=== PATIENT | male | born 1975 | race African-American/Black ===

== ENCOUNTER 2016-03-23 19:31 | Inpatient (IN) | payer BC ==
[~2016-03-23] VITALS: Ht 175.3 cm; Wt 117.5 kg
[2016-03-23 21:40] VITALS: BP 144/85
[2016-03-23] MEDS ORDERED: OXYCODONE/APAP 5/325 TABLET. PO PRN (22:15)
[2016-03-23] MEDS ORDERED: ACETAMINOPHEN 325 MG TABLET. PO PRN (22:15)
[2016-03-23] MEDS: IV NORMAL SALINE 1000ML BAG 1,000 ML IV SCH (22:30)
[2016-03-23] MEDS: FENTANYL PF 100 MCG/2 ML VIAL. IV PRN (22:37)
[2016-03-23] MEDS ORDERED: LOSA100T6 PO (22:49)
[2016-03-23] MEDS ORDERED: METF500T4 PO (22:49)
[2016-03-23] MEDS ORDERED: DAPA5TAB PO (22:49)
[2016-03-23] MEDS ORDERED: PANT40TA5 PO (22:49)
[2016-03-23] MEDS ORDERED: AMLO2.5T PO (22:49)
[2016-03-24] VITALS (10 sets, daily range): BP systolic 106–144; BP diastolic 52–84
[2016-03-24] MEDS: FENTANYL PF 100 MCG/2 ML VIAL. IV PRN ×4 (00:45→08:01)
[2016-03-24] MEDS: ONDANSETRON PF 4 MG/2 ML VIAL. IV PRN ×3 (03:39→20:46)
[2016-03-24] MEDS ORDERED: BUPIVAC MPF-EPI 0.5%-1:200000 30 ML VIAL. ONE (07:37)
[2016-03-24] MEDS ORDERED: SURGICEL HEMOSTAT 4X8 EACH. ONE (07:37)
[2016-03-24] MEDS: PANTOPRAZOLE IV PUSH 40 MG VIAL. IVP SCH (08:00)
--- NOTE | 2016-03-24 08:32 | PDOC2 ---
ZACK ROBBINS RELOCATION SPECIALIST 03/24/16 0832: CONSULT Date of Consult Date of Consult DATE: 03/24/16 TIME: 08:18 Reason for Consult Reason for Consult: possible appendicitis Referring Physician Referring Physician: [facility] ER Identification/Chief Complaint Chief Complaint abdominal pain Source Source: Chart review, Patient History of Present Illness Reason for Visit: RLQ pain with radiation to back for 3 days. + nausea, no emesis. Not aggravated by eating or movement. No alleviating factors. Denies any sick contacts. No constipation or diarrhea. No similar pain in past. 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 Drugs: None Lives: Alone Current Medications Current Medications Current Medications Sodium Chloride (Iv Sodium Chloride 0.9% 1000ml Bag) 1,000 ml @ 100 mls/hr Q10H IV Last administered on 03/23/16 22:30; Start 03/23/16 at 22:30 Pantoprazole Sodium (Protonix Vial) 40 mg DAILYAC IVP Last administered on 08:00; Start 03/24/16 at 07:30 Acetaminophen (Tylenol) 650 mg PRN Q6HRS PRN PO MILD PAIN / TEMP; Start at 22:15 Ondansetron HCl (Zofran) 4 mg PRN Q6HRS PRN IV NAUSEA/VOMITING Last administered on 03/24/16 03:39; Start 03/23/16 at 22:15 Fentanyl Citrate (Fentanyl 2ml Vial) 50 mcg PRN Q2HR PRN IV SEVERE PAIN Last administered on 03/24/16 08:01; Start 03/23/16 at 22:15 Oxycodone/ Acetaminophen (Percocet 5/325) 1 tab PRN Q6HRS PRN PO SEVERE PAIN; Start 03/23/16 at 22:15 Cellulose 1 each STK-MED ONCE .ROUTE ; Start 03/24/16 at 07:37; Stop 03/24/16 at 07:38; Status DC Bupivacaine HCl/ Epinephrine Bitart (Sensorcain-Mpf Epi 0.5%-1:314415) 30 ml STK -MED ONCE .ROUTE ; Start 03/24/16 at 07:37; Stop 03/24/16 at 07:38; Status DC Active Scripts Active Reported Farxiga (Dapagliflozin Propanediol) 5 Mg Tablet 5 Mg PO DAILY Losartan Potassium 100 Mg Tablet 100 Mg PO DAILY Amlodipine Besylate 2.5 Mg Tablet 2.5 Mg PO DAILY Metformin Hcl 500 Mg Tablet 1 Tab PO BID Pantoprazole Sodium 40 Mg Tablet. 1 Tab PO DAILY Allergies Allergies: Coded Allergies: aspirin (Verified Allergy, Intermediate, Rash, 08/08/13) ROS General: YES: Appetite (loss), Chills, No: Other (fevers) PSYCHOLOGICAL ROS: No: Anxiety, Depression Eyes: No Blurry vision, No Double vision HEENT: YES: Heacaches, No: Sore Throat Hematological and Lymphatic: No: Bleeding Problems, Blood Clots Respiratory: YES: Shortness of breath, No: Cough Cardiovascular: No Chest Pain, No Palpitations Gastrointestinal: Yes Other (see hpi) Genitourinary: No Dysuria, No Hematuria Musculoskeletal: No Joint Pain, No Muscle Pain Neurological: No Confusion Skin: No Pruritus, No Rash Physical Exam General: Alert, Oriented X3, Cooperative, No acute distress HEENT: PERRLA, Mucous membr. moist/pink Lungs: Clear to auscultation, Normal air movement Heart: Regular rate, Normal S1, Normal S2, No murmurs Abdomen: Soft, Other (mild tenderness to RLQ, no guarding or rebound tenderness ) Extremities: No clubbing, No cyanosis Skin: No rashes, No breakdown Neuro: Normal speech Psych/Mental Status: Mental status NL, Mood NL MUSCULOSKELETAL: No deformity, No swelling Vitals VITALS Vital Signs Date Time Temp Pulse Resp B/P Pulse Ox O2 Delivery O2 Flow Rate FiO2 03/24/16 08:01 Room Air 03/24/16 07:00 97.4 69 18 134/80 92 97.4 03/24/16 03:44 3.0 Assessment/Plan Assessment/Plan abdominal pain reviewed [facility] CT--normal appendix, normal WBC, did have elevated CK and lactic, although repeat lactic normal HTN, DM, obesity, tobaccoism no appendicitis findings on exam Dr Quesada will evaluate pt JOSE QUESADA MD 03/24/16 1046: CONSULT Allergies Allergies: Coded Allergies: aspirin (Verified Allergy, Intermediate, Rash, 08/08/13) Assessment/Plan Assessment/Plan addendum i saw and examined him. i repeated his consult/exam. i reviewed the printed er notes/lab note/ct report on his paper chart. i reviewed the ct images 40 yo male with 3 day hx of abd pain. pain began periumbilical and has localized to the RLQ. Is now a sharp, constant pain. aggravating by hitting the bumps in the road. associated with n/v and decreased appetite. he has not had these symptoms before. no sx to suggest gb disease such as hx of post prandial pain, n/v. no one he associates with have been ill. abd soft nd focal tenderness just inferior to mcburney's point. no rebound. no rosvings sign. pos heel tap. neg psoas, obturator signs. no ruq tenderness a/p rlq pain, hx and exam typical for appendicitis. d/w him nonop management/ observation vs. lap appy, poss open. he desires surgery. plan for lap appy, poss open today. risks of bleeding, infection, finding normal appendix or other pathology needing treatment, persistent post op pain if appendix is normal /no other findings noted at surgery, injury to intra-abd structures were d/w him and his fiance. questions answered and he desires to proceed. ZACK ROBBINS APRN Mar 24, 2016 08:32 JOSE QUESADA MD Mar 24, 2016 10:46
[2016-03-24] MEDS: IV NORMAL SALINE 1000ML BAG 1,000 ML IV SCH ×2 (08:54→18:27)
[2016-03-24] MEDS ORDERED: IV RINGERS,LACTATED 1000ML 1,000 ML IV SCH (09:28)
[2016-03-24] MEDS ORDERED: DEXTROSE 50% 25 GM / 50ML DISP.SYRIN. IV PRN (09:30)
[2016-03-24] MEDS ORDERED: PROCHLORPERAZINE 10 MG/2 ML VIAL. IV PRN (09:30)
[2016-03-24] MEDS ORDERED: hydrALAZINE 20 MG/ML VIAL. IVP PRN (09:30)
[2016-03-24] MEDS ORDERED: HYDROMORPHONE 2 MG/ML VIAL. IV PRN (09:30)
[2016-03-24] MEDS ORDERED: MORPHINE SULFATE 2 MG/ML DISP.SYRIN. IV PRN ×2 (09:30→11:45)
[2016-03-24] MEDS ORDERED: LIDOCAINE 1% 1 ML SYRINGE. ID PRN (09:30)
[2016-03-24] MEDS ORDERED: FENTANYL PF 100 MCG/2 ML VIAL. IV PRN ×2 (09:30)
[2016-03-24] MEDS ORDERED: ONDANSETRON PF 4 MG/2 ML VIAL. IV PRN (09:30)
[2016-03-24] MEDS: LOSARTAN POTASSIUM 50 MG TABLET. PO SCH (10:00)
[2016-03-24] MEDS: AMLODIPINE BESYLATE 2.5 MG TABLET PO SCH (10:00)
[2016-03-24] MEDS ORDERED: CEFOXITIN 2GM IVPB FOR OMNI 100 ML IV ONE (10:45)
--- NOTE | 2016-03-24 11:33 | PDOC1 ---
History and Physical Date of Admission Date of Admission 03/24/16 Identification/Chief Complaint Chief Complaint RLQ pain Problems: Source Source: Chart review, Patient History of Present Illness History of Present Illness 40yo M , with HTN, SERGEY ON CPAP, DM, gerd, WAS sent from [facility] for RLQ pain for a few days. Pain is 8/10, constant , radiating across lower abd, with N/V, no constipation or diarrhea, last BM was yesterday. Pt went to [facility], who did a CT was neg. but sent here for acute appendicitis. as per nurse, normal wbc, and HIGH LA in [facility] Past Medical History Cardiovascular: HTN Endocrine: Diabetes Past Surgical History Past Surgical History: Other (knee, vasectomy, no abdominal surgeries ) Family History Family History: No Significant, Other (noncontributory to current illness ) Social History Smoke: 1 pack per day ALCOHOL: occassional Drugs: None Current Medications Current Medications Current Medications Medications (Trade) Dose Ordered Sig/Bhupinder Start Time Stop Time Status Last Admin Dose Admin Acetaminophen (Tylenol) 650 mg PRN Q6HRS PRN 03/23/16 22:15 Amlodipine Besylate (Norvasc) 2.5 mg DAILY 03/24/16 10:00 Bupivacaine HCl/ Epinephrine Bitart (Sensorcain-Mpf Epi 0.5%-1:655709) 30 ml STK-MED ONCE 03/24/16 07:37 03/24/16 07:38 DC Cefoxitin Sodium (Mefoxin 2gm Ivpb For Omni) 100 ml @ 200 mls/hr 1X ONCE 03/24/16 10:45 03/24/16 11:14 DC Cellulose 1 each STK-MED ONCE 03/24/16 07:37 03/24/16 07:38 DC Dextrose 12.5 gm PRN Q15MIN PRN 03/24/16 09:30 Fentanyl Citrate (Fentanyl 2ml Vial) 50 mcg PRN Q5MIN PRN 03/24/16 09:30 03/25/16 09:29 Hydralazine HCl (Apresoline) 10 mg PRN Q4HRS PRN 03/24/16 09:30 Hydromorphone HCl (Dilaudid) 0.5 mg PRN Q10MIN PRN 03/24/16 09:30 03/25/16 09:29 Insulin Aspart (Novolog) 0-9 UNITS TIDWMEALS 03/24/16 12:00 Lactated Ringer's (Iv Lactated Ringers) 1,000 ml @ 0 mls/hr Q0M 03/24/16 09:28 03/24/16 21:27 Lidocaine HCl 2 ml 1X PRN PRN 03/24/16 09:30 03/25/16 09:29 Losartan Potassium (Cozaar) 100 mg DAILY 03/24/16 10:00 Morphine Sulfate 1 mg 1 mg PRN Q10MIN PRN 03/24/16 09:30 03/25/16 09:29 Non-Formulary Medication 5 mg DAILY 03/25/16 09:00 UNV Ondansetron HCl (Zofran) 4 mg PRN Q6HRS PRN 03/24/16 09:30 03/25/16 09:29 Oxycodone/ Acetaminophen (Percocet 5/325) 1 tab PRN Q6HRS PRN 03/23/16 22:15 Pantoprazole Sodium (Protonix Vial) 40 mg DAILYAC 03/24/16 07:30 03/24/16 08:00 40 MG Pantoprazole Sodium (Protonix) 40 mg DAILY 03/25/16 09:00 03/25/16 09:00 DC Prochlorperazine Edisylate 5 mg 5 mg PACU PRN PRN 03/24/16 09:30 03/25/16 09:29 Sodium Chloride (Iv Sodium Chloride 0.9% 1000ml Bag) 1,000 ml @ 100 mls/hr Q10H 03/23/16 22:30 03/24/16 08:54 100 MLS/HR Allergies Allergies Allergies Coded Allergies Type Severity Reaction Last Updated Verified aspirin Allergy Intermediate Rash 08/08/13 Yes ROS Review of System CONSTITUTIONAL: No fever or chills EYES: No recent changes SKIN: No rash or itching CARDIOVASCULAR: No chest pain, syncope, palpitations, or edema RESPIRATORY: No SOB or cough GASTROINTESTINAL: No nausea, vomiting or abdominal pain NEUROLOGICAL: No headaches or weakness ENDOCRINE: No cold or heat intolerance GENITOURINARY: No urgency or frequency of urination MUSCULOSKELETAL: No back pain or joint pain LYMPHATICS: No enlarged lymph nodes PSYCHIATRIC: No anxiety or depression Physical Exam Physical Exam GEN.: No apparent distress. Alert and oriented. HEENT: Head is normocephalic, atraumatic NECK: Supple. LUNGS: Clear to auscultation. HEART: RRR, S1, S2 present. Peripheral pulses intact ABDOMEN: Soft, Positive bowel sounds. RLQ mild tenderness EXTREMITIES: Without any cyanosis. NEUROLOGIC: Normal speech, normal tone PSYCHIATRIC: Normal affect, normal mood. SKIN: No ulcerations Vitals Vitals Vital Signs Date Time Temp Pulse Resp B/P Pulse Ox O2 Delivery O2 Flow Rate FiO2 03/24/16 08:38 Room Air 03/24/16 07:00 97.4 69 18 134/80 92 97.4 03/24/16 03:44 3.0 VTE Prophylaxis Ordered VTE Prophylaxis Devices: Yes VTE Pharmacological Prophylaxi: Yes Assessment/Plan Assessment/Plan 1. RLQ pain with neg CT, clinically consistent with acute appendicitis 2. htn 3. hld 4. obesity 5. tobaccoism 6. GERD 7. LACtate acidosis plan: 1. fu with sx, possible sx today 2. npo 3. ivf 4. cont home meds, hold metformin for now, SSI 5. dvt, gi ppx AUGUSTA MOTLEY MD Mar 24, 2016 11:33
[2016-03-24] MEDS ORDERED: MORPHINE SULFATE 4 MG/ML DISP.SYRIN. IV PRN (11:45)
[2016-03-24] MEDS ORDERED: DEXAMETHASONE SOD PHOS 20 MG/5 ML VIAL. ONE (11:47)
[2016-03-24] MEDS ORDERED: LIDOCAINE 2% 100 MG/5 ML DISP.SYRIN. ONE (11:47)
[2016-03-24] MEDS ORDERED: FENTANYL PF 100 MCG/2 ML VIAL. ONE ×2 (11:47→13:33)
[2016-03-24] MEDS ORDERED: ROCURONIUM 50 MG/5 ML VIAL. ONE (11:47)
[2016-03-24] MEDS ORDERED: PROPOFOL 20 ML IV ONE ×4 (11:47→13:11)
[2016-03-24] MEDS ORDERED: SUCCINYLCHOLINE 200 MG/10 ML VIAL. ONE ×2 (11:48→12:50)
[2016-03-24] MEDS ORDERED: MIDAZOLAM HCL 2 MG/2 ML VIAL. ONE (11:49)
[2016-03-24] MEDS: INSULIN ASPART 300 UNITS/3 ML INSULN.PEN SQ SCH ×2 (12:00→17:46)
[2016-03-24] MEDS ORDERED: ENOXAPARIN 40 MG/0.4 ML DISP.SYRIN. SQ SCH (12:00)
[2016-03-24] MEDS ORDERED: ACETAMINOPHEN INTRAVENOUS 100 ML IV ONE ×2 (12:05→12:15)
[2016-03-24] MEDS ORDERED: ONDANSETRON PF 4 MG/2 ML VIAL. ONE (13:40)
[2016-03-24] MEDS ORDERED: DESFLURANE 61 TO 120 MINUTES IH ONE (13:40)
[2016-03-24] MEDS ORDERED: GLYCOPYRROLATE 1 MG/5 ML VIAL. ONE (13:40)
[2016-03-24] MEDS ORDERED: NEOSTIGMINE METHYLSULFATE 5 MG/5 ML SYRINGE. ONE (13:40)
--- NOTE | 2016-03-24 13:56 | PDOC ---
BRIEF OPERATIVE NOTE Pre-Op Diagnosis RLQ pain lap appy geta ebl 10 ivf 1100 [facility] JOSE QUESADA MD Mar 24, 2016 13:56
[2016-03-24] MEDS: OXYCODONE/APAP 5/325 TABLET. PO PRN (18:24)
[2016-03-24] MEDS: BENZOCAINE/MENTHOL LOZENGE. PO PRN ×2 (18:36→20:50)
--- NOTE | 2016-03-24 19:33 | OP ---
DATE OF SURGERY: 03/24/2016 PREOPERATIVE DIAGNOSIS: Right lower quadrant pain. POSTOPERATIVE DIAGNOSIS: Right lower quadrant pain. PROCEDURE: Laparoscopic appendectomy. SURGEON: Jose Quesada M.D. ANESTHESIA: General. ESTIMATED BLOOD LOSS: 10 mL. IV FLUIDS: 1100 mL. INDICATIONS: The patient is a 40-year-old male who presents with right lower quadrant pain. His history is consistent with appendicitis. A CT scan was negative based on these findings, we talked about nonoperative versus operative approach. He decided to have an operative approach. FINDINGS: His appendix was minimally thickened, but not obviously inflamed, no other findings on laparoscopy to account for his pain. A laparoscopic appendectomy was performed. DESCRIPTION OF PROCEDURE: After informed consent was obtained, the patient was taken to the operating room and placed in supine position. After adequate induction of general anesthesia, he was prepped and draped in usual sterile fashion. An umbilical skin incision was made with a scalpel, subcutaneous tissues with a hemostat. [facility] was used to grab the fascia and lifted anteriorly. Veress used to gain access to the peritoneal cavity. Low opening pressures confirmed intraperitoneal placement of Veress. Pneumoperitoneum to 15 mmHg was established followed by placement of 5 mm port. A 5 mm 30-degree lens was inserted, which revealed good port placement. No evidence of entry trauma. He was placed head down and rotated towards his left. Two additional ports were placed under direct vision, one was a 12 mm left lower quadrant port and one was a 5 mm suprapubic port. These were placed after injecting the fascia with local anesthetic. The appendix was visible in the right lower quadrant window was made at the base of appendix with a [place] dissector. Laparoscopic JESSICA blue load stapler was used to divide the base of the appendix. Laparoscopic JESSICA white load stapler was used to divide the mesoappendix. The appendix was placed in laparoscopic bag and brought out to the left lower quadrant incision. There was some bleeding at the mesoappendix the staple line that was controlled with application of a laparoscopic clip exterminator termite. He had an adhesion of the omentum to an epiploice appendage on the sigmoid and this was taken down sharply and the bleeding was controlled with a clip exterminator termite. At this point, the cecum appeared normal. The gallbladder appeared normal. Visualized portions of the stomach appeared normal. Liver appeared normal. Visualized portions of the sigmoid appeared normal. Sigmoid is very redundant, just lie over in the right lateral abdomen. The small bowel was then run for severe feet proximally to the ileocecal valve and was unremarkable. No other intra-abdominal findings to account for his right lower quadrant pain and there was no free fluid noted intraoperatively, no evidence of inflammatory process intraoperatively. One final look at the right lower quadrant revealed it to be hemostatic. The fascia was closed with the left lower quadrant incision using 0 Vicryl suture and then the ports removed under direct vision. They were hemostatic. Pneumoperitoneum was desufflated and then skin incisions were closed with 4-0 Monocryl in subcuticular fashion. Sterile dressings were placed. He tolerated the procedure well. There were no apparent complications. He was then transferred in stable condition to recovery room. JOSE QUESADA MD DR: RUI/misha JOB#: [id number] / [id number] OLEKSANDR Stock MD MTDKirk
[2016-03-24] MEDS ORDERED: PHENOL ORAL SPRAY 177ML BOTTLE. PO PRN (22:30)
[2016-03-25 03:05] VITALS: BP 130/83
[2016-03-25] MEDS: IV NORMAL SALINE 1000ML BAG 1,000 ML IV SCH (04:30)
[2016-03-25] MEDS: OXYCODONE/APAP 5/325 TABLET. PO PRN (05:45)
[2016-03-25 07:00] VITALS: BP 142/86
[2016-03-25] MEDS: INSULIN ASPART 300 UNITS/3 ML INSULN.PEN SQ SCH (08:00)
[2016-03-25 08:34] VITALS: BP 142/86
[2016-03-25] MEDS: AMLODIPINE BESYLATE 2.5 MG TABLET PO SCH (08:34)
[2016-03-25] MEDS: LOSARTAN POTASSIUM 50 MG TABLET. PO SCH (08:34)
[2016-03-25] MEDS: PANTOPRAZOLE IV PUSH 40 MG VIAL. IVP SCH (08:35)
[2016-03-25 08:38] LABS: CALCIUM 9.1 mg/dL (8.5-10.1); CREATININE 1.1 mg/dL (0.7-1.3); GFR 89.3; POTASSIUM 4.6 mmol/L (3.5-5.1)
[2016-03-25 08:46] LABS: BASO % 0 % (0-3); EOS % 0 % (0-3); HEMATOCRIT 40.6 % (39.0-53.0); HEMOGLOBIN 13.1 g/dL (13.0-17.5); LYMPH # 0.8 x10^3/uL (1.0-4.8); LYMPH % 6 % (24-48); MEAN CORPUSCULAR HEMOGLOBIN 28 pg (25-35); MEAN CORPUSCULAR HGB CONC 32 g/dL (31-37); MEAN CORPUSCULAR VOLUME 85 fL (79-100); MONO % 2 % (0-9); NEUT % 92 % (31-73); PLATELET COUNT 244 x10^3/uL (140-400); RED BLOOD COUNT 4.76 x10^6/uL (4.30-5.70); RED CELL DISTRIBUTION WIDTH 14.2 % (11.5-14.5); WHITE BLOOD COUNT 12.2 x10^3/uL (4.0-11.0)
[2016-03-25] MEDS ORDERED: PANTOPRAZOLE 40 MG TABLET. PO SCH (09:00)
[2016-03-25] MEDS ORDERED: NON FORMULARY ITEM (Dapagliflozin Propanediol (Farxiga) 5 MG) PO SCH (09:00)
--- NOTE | 2016-03-25 09:13 | PDOC ---
SURGICAL PROGRESS NOTE Subjective feels much better than preop tolerating diet urinating Vital Signs Vital Signs Date Time Temp Pulse Resp B/P Pulse Ox O2 Delivery O2 Flow Rate FiO2 03/25/16 08:34 81 142/86 03/25/16 07:00 99.3 20 95 Room Air 99.3 03/24/16 20:00 2.0 I&O Intake and Output 03/25/16 07:00 Intake Total 468 ml Output Total 1000 ml Balance -532 ml Intake Oral 210 ml IV Total 258 ml Output Urine Total 1000 ml # Voids 2 PATIENT HAS A BUENO: No General: Alert, Oriented X3, Cooperative, No acute distress Abdomen: Soft, Other (ND, lap dressings dry) Labs Laboratory Tests Test 03/24/16 12:00 03/24/16 14:47 03/24/16 17:18 03/24/16 20:26 Glucose (Fingerstick) 146mg/dL (70-99) 180mg/dL (70-99) 196mg/dL (70-99) 224mg/dL (70-99) Test 03/25/16 03:36 03/25/16 07:46 White Blood Count 12.2x10^3/uL (4.0-11.0) Red Blood Count 4.76x10^6/uL (4.30-5.70) Hemoglobin 13.1g/dL (13.0-17.5) Hematocrit 40.6% (39.0-53.0) Mean Corpuscular Volume 85fL (79-100) Mean Corpuscular Hemoglobin 28pg (25-35) Mean Corpuscular Hemoglobin Concent 32g/dL (31-37) Red Cell Distribution Width 14.2% (11.5-14.5) Platelet Count 244x10^3/uL (140-400) Neutrophils (%) (Auto) 92% (31-73) Lymphocytes (%) (Auto) 6% (24-48) Monocytes (%) (Auto) 2% (0-9) Eosinophils (%) (Auto) 0% (0-3) Basophils (%) (Auto) 0% (0-3) Neutrophils # (Auto) 11.2x10^3uL (1.8-7.7) Lymphocytes # (Auto) 0.8x10^3/uL (1.0-4.8) Monocytes # (Auto) 0.2x10^3/uL (0.0-1.1) Eosinophils # (Auto) 0.0x10^3/uL (0.0-0.7) Basophils # (Auto) 0.0x10^3/uL (0.0-0.2) Sodium Level 129mmol/L (136-145) Potassium Level 4.6mmol/L (3.5-5.1) Chloride Level 98mmol/L (98-107) Carbon Dioxide Level 27mmol/L (21-32) Anion Gap 4 (6-14) Blood Urea Nitrogen 13mg/dL (8-26) Creatinine 1.1mg/dL (0.7-1.3) Estimated GFR (Cockcroft-Gault) 89.3 Glucose Level 187mg/dL (70-99) Calcium Level 9.1mg/dL (8.5-10.1) Glucose (Fingerstick) 151mg/dL (70-99) Laboratory Tests Test 03/24/16 12:00 03/24/16 14:47 03/24/16 17:18 03/24/16 20:26 Glucose (Fingerstick) 146mg/dL (70-99) 180mg/dL (70-99) 196mg/dL (70-99) 224mg/dL (70-99) Test 03/25/16 03:36 03/25/16 07:46 White Blood Count 12.2x10^3/uL (4.0-11.0) Red Blood Count 4.76x10^6/uL (4.30-5.70) Hemoglobin 13.1g/dL (13.0-17.5) Hematocrit 40.6% (39.0-53.0) Mean Corpuscular Volume 85fL (79-100) Mean Corpuscular Hemoglobin 28pg (25-35) Mean Corpuscular Hemoglobin Concent 32g/dL (31-37) Red Cell Distribution Width 14.2% (11.5-14.5) Platelet Count 244x10^3/uL (140-400) Neutrophils (%) (Auto) 92% (31-73) Lymphocytes (%) (Auto) 6% (24-48) Monocytes (%) (Auto) 2% (0-9) Eosinophils (%) (Auto) 0% (0-3) Basophils (%) (Auto) 0% (0-3) Neutrophils # (Auto) 11.2x10^3uL (1.8-7.7) Lymphocytes # (Auto) 0.8x10^3/uL (1.0-4.8) Monocytes # (Auto) 0.2x10^3/uL (0.0-1.1) Eosinophils # (Auto) 0.0x10^3/uL (0.0-0.7) Basophils # (Auto) 0.0x10^3/uL (0.0-0.2) Sodium Level 129mmol/L (136-145) Potassium Level 4.6mmol/L (3.5-5.1) Chloride Level 98mmol/L (98-107) Carbon Dioxide Level 27mmol/L (21-32) Anion Gap 4 (6-14) Blood Urea Nitrogen 13mg/dL (8-26) Creatinine 1.1mg/dL (0.7-1.3) Estimated GFR (Cockcroft-Gault) 89.3 Glucose Level 187mg/dL (70-99) Calcium Level 9.1mg/dL (8.5-10.1) Glucose (Fingerstick) 151mg/dL (70-99) Problem List s/p lap appy improved ok to dc home Problems: ZACK ROBBINS APRN Mar 25, 2016 09:13
[2016-03-25 09:48] LABS: PLT ESTIMATE ADEQUATE (ADEQUATE)
--- NOTE | 2016-03-25 11:16 | PDOC3 ---
Discharge Summary [facility] Date of Admission: Mar 23, 2016 Discharge Date: Mar 25, 2016 Admitting Diagnosis Problems: Final Diagnosis 1. RLQ pain with neg CT, clinically consistent with acute appendicitis post lap appendectomy on 03/25 2. htn 3. hld 4. obesity 5. tobaccoism 6. GERD 7. LACtate acidosis CONSULTS sx Brief Hospital Course 40yo M , with HTN, SERGEY ON CPAP, DM, gerd, WAS sent from [facility] for RLQ pain for a few days. Pain is 8/10, constant , radiating across lower abd, with N/V, no constipation or diarrhea, last BM was yesterday. Pt went to [facility], who did a CT was neg. but sent here for acute appendicitis. as per nurse, normal wbc, and HIGH LA in [facility] Pt underwent lap appendectomy, feels good now, had BM. 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 Alert and oriented. HEENT: Head is normocephalic, atraumatic NECK: Supple. LUNGS: Clear to auscultation. HEART: RRR, S1, S2 present. Peripheral pulses intact ABDOMEN: Soft, Positive bowel sounds. RLQ mild tenderness EXTREMITIES: Without any cyanosis. NEUROLOGIC: Normal speech, normal tone PSYCHIATRIC: Normal affect, normal mood. SKIN: No ulcerations Patient History: Family history: Diabetes mellitus (situation) 33 FATHER 32 MOTHER Family history: Hypertension (situation) 32 MOTHER Problems: Disposition home CONDITION AT DISCHARGE: Improved Diet regular Scheduled Amlodipine Besylate (Amlodipine Besylate) 2.5 MG PO DAILY (Reported) Dapagliflozin Propanediol (Farxiga) 5 MG PO DAILY (Reported) Losartan Potassium (Losartan Potassium) 100 MG PO DAILY (Reported) Metformin Hcl (Metformin Hcl) 1 TAB PO BID (Reported) Pantoprazole Sodium (Pantoprazole Sodium) 1 TAB PO DAILY (Reported) Follow Up sx in 2 weeks AUGUSTA MOTLEY MD Mar 25, 2016 11:16
== END 2016-03-25 10:45 | disposition home or self-care (01) | DRG 342 ==
LOC: 4 NORTH 21:40
PROVIDERS: ADMIT Internal Medicine; ATTEND Internal Medicine
PROC: 0DTJ4ZZ Resection of Appendix, Percutaneous Endoscopic Approach (ICD-10-PCS; principal; 2016-03-24 09:00)
DX: K35.80 Unspecified acute appendicitis (principal); E87.2 Acidosis; E66.9 Obesity, unspecified; E11.9 Type 2 diabetes mellitus without complications; F17.200 Nicotine dependence, unspecified, uncomplicated; G47.33 Obstructive sleep apnea (adult) (pediatric); I10 Essential (primary) hypertension; K21.9 Gastro-esophageal reflux disease without esophagitis; E78.5 Hyperlipidemia, unspecified; Z60.2 Problems related to living alone; Z82.49 Family history of ischemic heart disease and other diseases of the circulatory system; Z83.3 Family history of diabetes mellitus; Z88.6 Allergy status to analgesic agent; Z68.38 Body mass index [BMI] 38.0-38.9, adult
CPT/HCPCS: 36415; 80048; 82947; 85007; 85027; 88304; C1782; C9113; J0131; J0330; J0360; J0694; J0780; J1100; J1815; J2250; J2270; J2405; J2704; J2710; J3010; J3490; J7030; J7120